=== PATIENT | male | born 1955 | race Caucasian/White ===

== ENCOUNTER 2020-02-07 15:16 | Emergency (ER) | payer MEDICARE, BC ==
[~2020-02-07] VITALS: Ht 188 cm; Wt 126.4 kg
[2020-02-07 15:26] VITALS: BP 182/102
== END 2020-02-07 15:53 | disposition home or self-care (01) ==
LOC: ER 15:17
DX: J06.9 Acute upper respiratory infection, unspecified (principal)
CPT/HCPCS: 99281